=== PATIENT | male | born 1990 | race Two or more races ===

== ENCOUNTER 2017-06-03 19:43 | Emergency (ER) | payer OTHER ==
[~2017-06-03] VITALS: Ht 180.3 cm; Wt 81.6 kg
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
[2017-06-03 20:49] LABS: BASOPHILS # (AUTO) 0.1 /CMM (0.0-0.2); BASOPHILS % (AUTO) 1.2 % (0.0-2.0); EOSINOPHILS % (AUTO) 1.2 % (0.0-6.0); HEMATOCRIT 45 % (39-51); HEMOGLOBIN 15.7 g/dL (13.5-17.5); LYMPHOCYTES # (AUTO) 2.9 /CMM (0.8-4.8); LYMPHOCYTES % (AUTO) 38.6 % (20.0-44.0); MEAN CORPUSCULAR HGB CONC 35 g/dl (31.0-36.0); MEAN CORPUSCULAR VOLUME 85 fL (80-96); MONOCYTES # (AUTO) 0.5 /CMM (0.1-1.30); MONOCYTES % (AUTO) 7.1 % (2.0-12.0); NEUTROPHILS # (AUTO) 3.8 /CMM (1.8-8.9); NEUTROPHILS % (AUTO) 51.9 % (43.0-81.0); PLATELET COUNT (AUTO) 189 /CMM (150-450); RDW COEFFICIENT OF VARIATION 11.5 (11.5-15.0); RED BLOOD CELL COUNT(AUTO) 5.25 MIL/uL (4.5-6.0); WHITE BLOOD COUNT (AUTO) 7.4 K/uL (4.3-11.0)
[2017-06-03] MEDS ORDERED: IV NS 0.9% 1,000 ML BAG IV ONE (21:00)
[2017-06-03 21:03] LABS: CALCIUM, SERUM 9.6 mg/dL (8.5-10.1); CARBON DIOXIDE 31 mmol/L (21-32); CHLORIDE 102 mmol/L (98-107); CREATININE 1.1 mg/dL (0.6-1.3); GLUCOSE 99 mg/dL (74-106); POTASSIUM 3.5 mmol/L (3.5-5.1); SODIUM SERUM 139 mmol/L (136-145); UREA NITROGEN, BLOOD 15 mg/dL (7-18)
[2017-06-03 21:12] LABS: INR 1.02 (0.87-1.13); TROPONIN I < 0.017 ng/mL (0.00-0.056)
[2017-06-03] MEDS ORDERED: MECLIZINE HCL 25 MG TABLET ONE (21:16)
[2017-06-03] MEDS ORDERED: MECLIZINE HCL 25 MG TABLET PO ONE (21:30)
--- NOTE | 2017-06-03 21:41 | NUR ---
Patient discharged to home in stable condition. Written and verbal after care instructions given. Patient verbalizes understanding of instruction.IV removed. Catheter intact and site benign. Pressure and 4x4 applied to site. No bleeding noted. Prescription given.
[2017-06-03 21:52] VITALS: BP 122/70
== END 2017-06-03 21:53 | disposition home or self-care (01) ==
LOC: ER 19:43
DX: R07.89 Other chest pain (principal); R42 Dizziness and giddiness
CPT/HCPCS: 36415; 71045-TC; 80048-TC; 84484-TC; 85025-TC; 85730-TC; A4606; J7030; J8597; Z7610

== ENCOUNTER 2017-06-24 13:10 | Emergency (ER) | payer OTHER ==
[~2017-06-24] VITALS: Ht 180.3 cm; Wt 80.3 kg
[2017-06-24 13:20] VITALS: BP 147/85
--- NOTE | 2017-06-24 13:25 | NUR ---
DIZZINESS, NAUSEA, HEADACHE ON/OFF x 1 MONTH. VSS
== END 2017-06-24 14:38 | disposition home or self-care (01) ==
LOC: ER 13:11
DX: R42 Dizziness and giddiness (principal); R11.0 Nausea; Z98.890 Other specified postprocedural states; Z60.2 Problems related to living alone
CPT/HCPCS: A4606; Z7502; Z7610

== ENCOUNTER 2018-09-30 18:53 | Emergency (ER) | payer SELFPAY ==
[~2018-09-30] VITALS: Ht 180.3 cm; Wt 81.6 kg
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
[2018-09-30] MEDS ORDERED: ACETAMINOPHEN ES 500 MG TABLET ONE (19:54)
[2018-09-30] MEDS ORDERED: CYCLOBENZAPRINE 10 MG TABLET ONE (19:54)
--- NOTE | 2018-09-30 19:56 | NUR ---
Pt taken to CT via [facility].
[2018-09-30] MEDS ORDERED: ACETAMINOPHEN 325 MG TABLET PO ONE (20:00)
[2018-09-30] MEDS ORDERED: CYCLOBENZAPRINE 10 MG TABLET PO ONE (20:00)
--- NOTE | 2018-09-30 20:00 | NUR ---
PT RETURNED FROM CT [facility].
--- NOTE | 2018-09-30 20:04 | NUR ---
XRAY AT BEDSIDE.
--- NOTE | 2018-09-30 20:05 | NUR ---
Carlito vergara in ED - 09/30/18 at 2016 by JUDE PT RETURNED FROM CT.
--- NOTE | 2018-09-30 20:54 | NUR ---
Patient discharged to home in stable condition. Written and verbal after care instructions given. Patient verbalizes understanding of instruction.
[2018-09-30 20:55] VITALS: BP 130/79
== END 2018-09-30 20:57 | disposition home or self-care (01) ==
LOC: ER 18:54
DX: S16.1XXA Strain of muscle, fascia and tendon at neck level, initial encounter (principal); S39.012A Strain of muscle, fascia and tendon of lower back, initial encounter; S20.212A Contusion of left front wall of thorax, initial encounter; S09.8XXA Other specified injuries of head, initial encounter; R51 Headache; F10.10 Alcohol abuse, uncomplicated; Y90.9 Presence of alcohol in blood, level not specified; Z98.890 Other specified postprocedural states; Z60.2 Problems related to living alone; V49.49XA Driver injured in collision with other motor vehicles in traffic accident, initial encounter; Y93.89 Activity, other specified; Y92.488 Other paved roadways as the place of occurrence of the external cause; Y99.8 Other external cause status
CPT/HCPCS: 70450; 71045; 72110; 72125; 99284; L0172